=== PATIENT | female | born 1985 | race Caucasian/White ===

== ENCOUNTER 2016-05-31 09:15 | Outpatient (RCR) | payer MEDICAID, OTHER | END 2016-06-05 | LOC: M PT 09:15 | PROVIDERS: ATTEND Psychiatry & Neurology Neurology | DX: Z51.89 Encounter for other specified aftercare (principal); M47.892 Other spondylosis, cervical region; M50.222 Other cervical disc displacement at C5-C6 level ==

== ENCOUNTER 2016-07-05 07:35 | Outpatient (RCR) | payer OTHER | END 2016-07-06 | LOC: M PT 07:35 | PROVIDERS: ATTEND Psychiatry & Neurology Neurology | DX: Z51.89 Encounter for other specified aftercare (principal); M50.222 Other cervical disc displacement at C5-C6 level ==

== ENCOUNTER 2016-07-20 07:41 | Outpatient (RCR) | payer OTHER | END 2016-08-05 | LOC: M PT 07:41 | PROVIDERS: ATTEND Psychiatry & Neurology Neurology | DX: Z51.89 Encounter for other specified aftercare (principal); M50.222 Other cervical disc displacement at C5-C6 level ==

== ENCOUNTER 2016-10-28 20:10 | Inpatient (IN) | payer OTHER ==
[~2016-10-28] VITALS: Ht 157.5 cm; Wt 65.5 kg
[2016-10-28] MEDS ORDERED: SERT-138 PO (20:27)
[2016-10-28] MEDS ORDERED: BUSP30TA PO (20:27)
[2016-10-28] MEDS ORDERED: MIRT45TA PO (20:27)
[2016-10-28] MEDS ORDERED: GABA600T PO (20:27)
[2016-10-28 20:48] LABS: BASO % 0.3 % (0.0-1.0); EOS # 0.2 K/mm3 (0.0-0.50); EOS % 1.5 % (0.0-3.0); LARGE UNSTAINED CELL # 0.1 K/mm3 (0.0-0.4); LARGE UNSTAINED CELL % 1.2 % (0.0-4.0); LYMPH # 1.8 K/mm3 (1.5-4.5); LYMPH % 15.8 % (24.0-44.0); MEAN CORPUSCULAR HEMOGLOBIN 27.2 pg (27.0-33.0); MEAN CORPUSCULAR VOLUME 77.9 fl (80.0-96.0); MONO # 0.4 K/mm3 (0.0-0.8); MONO % 3.6 % (0.0-5.0); NEUTROPHILS # 8.8 K/mm3 (1.8-7.7); NEUTROPHILS % 77.6 % (36.0-66.0); PLATELET COUNT, AUTOMATED 328 k/mm3 (150-450); RED CELL DISTRIBUTION WIDTH 12.7 % (11.5-14.5); WHITE BLOOD COUNT 11.4 K/mm3 (4.0-10.0)
[2016-10-28 21:19] LABS: METHADONE URINE NEGATIVE (NEGATIVE)
[2016-10-28 21:24] LABS: CONTROL LINE HCG INT CTR LINE PRESENT
[2016-10-28 21:39] LABS: ALBUMIN 4.1 GM/DL (3.2-5.2); ALBUMIN/GLOBULIN RATIO 1.28 (1.00-1.93); ALKALINE PHOSPHATASE 64 U/L (45-117); ALT/SGPT 27 U/L (12-78); ANION GAP 4 MEQ/L (8-16); AST/SGOT 17 U/L (15-37); BILIRUBIN,DIRECT < 0.1 MG/DL (0.0-0.2); BILIRUBIN,TOTAL 0.3 MG/DL (0.2-1.0); BLOOD UREA NITROGEN 9 MG/DL (7-18); CALCIUM LEVEL 8.7 MG/DL (8.5-10.1); CARBON DIOXIDE LEVEL 28 MEQ/L (21-32); CHLORIDE LEVEL 111 MEQ/L (98-107); CREATININE FOR GFR 0.69 MG/DL (0.55-1.02); GLOMERULAR FILTRATION RATE > 60.0 (>60); GLUCOSE, FASTING 92 MG/DL (70-105); POTASSIUM SERUM 3.9 MEQ/L (3.5-5.1); SODIUM LEVEL 143 MEQ/L (136-145); TOTAL PROTEIN 7.3 GM/DL (6.4-8.2)
[2016-10-29] MEDS ORDERED: HALOPERIDOL 5 MG/ML VIAL (J1630) IM ONE ×2 (05:15→05:30)
[2016-10-29] MEDS ORDERED: LORazepam 2 MG/ML VIAL (J2060) IM ONE ×2 (05:15→05:30)
[2016-10-29] MEDS ORDERED: diphenhydrAMINE INJ 50MG/ML VIAL (J1200) IM ONE (05:15)
[2016-10-29] MEDS ORDERED: traZODone 50 MG TAB PO PRN (06:00)
[2016-10-29] MEDS ORDERED: ACETAMINOPHEN TAB 650MG DOSE (2X325MG) PO PRN (06:00)
[2016-10-29] MEDS ORDERED: MOM 30ML SUSPENSION UDC PO PRN (06:00)
[2016-10-29] MEDS ORDERED: MAALOX 30 ML SUSP *UDC PO PRN (06:00)
[2016-10-29] MEDS ORDERED: ADDE20CA3 PO (06:06)
[2016-10-29] MEDS ORDERED: SERT50TA PO (06:09)
[2016-10-29] MEDS: NICOTINE 21MG/24HR 1 EA TRANSDERMAL TD SCH (09:00)
[2016-10-29 13:27] VITALS: BP 112/64
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
[2016-10-29 18:31] VITALS: BP 99/56
--- NOTE | 2016-10-30 05:51 | ECGEPIP ---
Stationary ECG Study [facility] - ED Test Date: 2016-10-28 Pat Name: VALENTINA LUNA Department: Room: [place] [address] Gender: F Forester Aide: alayna : 1985 Requested By: HAI Castellanos Order Number: [id number] Reading MD: Caden Abebe Measurements Intervals [place] Rate: 79 P: 73 NC: 153 QRS: 27 QRSD: 94 T: 37 QT: 381 QTc: 439 Interpretive Statements SINUS RHYTHM NO PRIORS Electronically Signed On 10-30-2016 5:51:02 EDT by Caden Abebe
[2016-10-30 06:24] VITALS: BP 136/58
[2016-10-30] MEDS: NICOTINE 21MG/24HR 1 EA TRANSDERMAL TD SCH (09:00)
[2016-10-30] MEDS: GABAPENTIN 300 MG CAP PO SCH ×3 (11:20→22:10)
--- NOTE | 2016-10-30 14:32 | HPE ---
DATE OF ADMISSION: 10/29/2016 HISTORY OF PRESENT ILLNESS: Please refer to psychiatric history and evaluation for further details on this admission. This examination and history is intended for medical issues, which may need treatment, followup or consultation on this 30-year-old male. ALLERGIES: NICKEL. No known drug allergies. PRIMARY CARE PROVIDER: She goes to [facility]. She is not sure of who she exactly sees. SOCIAL HISTORY: . EtOH none. Smokes one pack of cigarettes per day. Recreational drug use is marijuana. PAST MEDICAL HISTORY: Anxiety, depression, low back pain, iron deficiency anemia. PAST SURGICAL HISTORY: Tubal ligation. [place] teeth extraction. Colposcopy. HOME MEDICATIONS: - buspirone 30 mg by mouth twice a day - gabapentin 600 mg by mouth three times a day - mirtazapine 45 mg by mouth at night - sertraline 150 mg by mouth daily - Adderall XR 20 mg by mouth daily - multivitamin with iron one by mouth daily EKG showed sinus rhythm of 79. LABORATORY STUDIES: WBC 11.4, hemoglobin 12.1, hematocrit 34.7, MCV 77.9. Sodium 143, potassium 3.9, chloride 111, CO2 of 28, BUN 9, creatinine 0.69, TSH 0.644. Urine was positive for cannabinoids. REVIEW OF SYSTEMS: Essentially unremarkable other than chronic low back pain, for which she takes gabapentin. She had no other complaints. PHYSICAL EXAMINATION: GENERAL: 30-year-old cooperative female in no acute distress. Height 62 inches, weight 65.5 kg, Body Mass Index (BMI) 26.4. Blood pressure 112/64, pulse 64, respirations 16, temperature 97.5. Patient is alert and oriented times three. HEENT: Pupils are equal and reactive to light. Extraocular muscles intact. Sclerae clear. Conjunctivae normal. No facial asymmetry. Pharynx, gums and tongue pink and moist. Tongue is midline. NECK: Supple without lymphadenopathy, thyromegaly or goiter. Carotids 2+ without bruit. CHEST: Clear to auscultation without wheeze or retraction. HEART: Regular. ABDOMEN: Benign. Bowel sounds positive. GENITOURINARY/RECTAL: Not done. EXTREMITIES: Equal strength, full range of motion. No clubbing, cyanosis, and edema. Peripheral pulses equal and palpable bilaterally. SKIN: Warm and dry. IMPRESSION/PLAN: 1. Psychiatric plan per psychiatry. 2. Low back pain, continue gabapentin 600 mg by mouth three times a day. 3. Iron deficiency anemia. Continue multivitamin with iron. In the morning, we will recheck CBC, serum iron, iron binding capacity and ferritin.
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
[2016-10-30 18:49] VITALS: BP 121/70
[2016-10-31 06:34] VITALS: BP 112/61
[2016-10-31 07:11] LABS: BASO % 0.5 % (0.0-1.0); EOS # 0.2 K/mm3 (0.0-0.50); LARGE UNSTAINED CELL # 0.1 K/mm3 (0.0-0.4); LARGE UNSTAINED CELL % 1.7 % (0.0-4.0); LYMPH # 1.9 K/mm3 (1.5-4.5); LYMPH % 22.8 % (24.0-44.0); MEAN CORPUSCULAR HEMOGLOBIN 27.4 pg (27.0-33.0); MEAN CORPUSCULAR HGB CONC 35.2 g/dl (32.0-36.5); MEAN CORPUSCULAR VOLUME 77.7 fl (80.0-96.0); MONO # 0.4 K/mm3 (0.0-0.8); MONO % 4.9 % (0.0-5.0); NEUTROPHILS # 5.8 K/mm3 (1.8-7.7); NEUTROPHILS % 68.1 % (36.0-66.0); PLATELET COUNT, AUTOMATED 354 k/mm3 (150-450); RED CELL DISTRIBUTION WIDTH 12.4 % (11.5-14.5); WHITE BLOOD COUNT 8.5 K/mm3 (4.0-10.0)
[2016-10-31 07:37] LABS: PERCENT SATURATION 21.2 % (13.2-45.0)
[2016-10-31] MEDS: GABAPENTIN 300 MG CAP PO SCH ×3 (07:52→20:27)
[2016-10-31] MEDS: NICOTINE 21MG/24HR 1 EA TRANSDERMAL TD SCH (07:52)
[2016-10-31] MEDS: busPIRone 10 MG TAB PO SCH ×2 (10:19→20:27)
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
[2016-10-31] MEDS: hydrOXYzine 25 MG TAB PO PRN (16:11)
[2016-10-31 18:00] VITALS: BP 136/65
[2016-10-31] MEDS: MIRTAZAPINE 15 MG TAB PO SCH (20:27)
[2016-10-31] MEDS: SERTRALINE HCL 50 MG TAB PO SCH (20:27)
[2016-11-01 06:28] VITALS: BP 120/59
[2016-11-01] MEDS: NICOTINE 21MG/24HR 1 EA TRANSDERMAL TD SCH (08:16)
[2016-11-01] MEDS: GABAPENTIN 300 MG CAP PO SCH ×3 (08:16→20:15)
[2016-11-01] MEDS: busPIRone 10 MG TAB PO SCH ×2 (08:16→20:14)
[2016-11-01] MEDS: hydrOXYzine 25 MG TAB PO PRN (15:27)
[2016-11-01 18:00] VITALS: BP 106/58
[2016-11-01] MEDS: MIRTAZAPINE 15 MG TAB PO SCH (20:14)
[2016-11-01] MEDS: SERTRALINE HCL 50 MG TAB PO SCH (20:15)
[2016-11-02 07:14] VITALS: BP 113/62
[2016-11-02] MEDS: GABAPENTIN 300 MG CAP PO SCH (08:05)
[2016-11-02] MEDS: busPIRone 10 MG TAB PO SCH (08:05)
[2016-11-02] MEDS: NICOTINE 21MG/24HR 1 EA TRANSDERMAL TD SCH (08:05)
[2016-11-02] MEDS: hydrOXYzine 25 MG TAB PO PRN (08:05)
[2016-11-02] MEDS ORDERED: Sertraline Hcl PO (09:13)
[2016-11-02] MEDS ORDERED: HYDR-3363 PO (09:13)
[2016-11-02] MEDS ORDERED: SERT-138 PO (09:16)
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
[2016-11-02] MEDS ORDERED: SERTRALINE 100 MG TAB PO SCH (21:00)
== END 2016-11-02 10:34 | disposition home or self-care (01) | DRG 753 ==
LOC: M ED 20:10 → M ED INP 10-29 05:46 → M PSY 10-29 13:15
PROVIDERS: ADMIT Psychiatry & Neurology Child & Adolescent Psychiatry; ATTEND Psychiatry & Neurology Child & Adolescent Psychiatry
DX: F32.81 Premenstrual dysphoric disorder (principal); F32.2 Major depressive disorder, single episode, severe without psychotic features; F90.9 Attention-deficit hyperactivity disorder, unspecified type; Z79.899 Other long term (current) drug therapy; M54.5 Low back pain; D50.9 Iron deficiency anemia, unspecified

== ENCOUNTER → 2016-11-11 | Outpatient (REF) | payer OTHER ==
[~2016-11-11] MED LIST: ADDE20CA3 PO; BUSP30TA PO; GABA600T PO; HYDR-3363 PO; MIRT45TA PO; SERT-138 PO; SERT50TA PO; Sertraline Hcl PO
[2016-11-11 13:44] LABS: BASO # 0.1 10^3/uL (0.0-0.2); BASO % 0.7 % (0.0-1.0); EOS # 0.7 10^3/uL (0.0-0.50); IMMATURE GRANULOCYTE % 0.9 % (0-0); LYMPH # 3.1 10^3/uL (1.5-4.5); LYMPH % 23.2 % (24.0-44.0); MEAN CORPUSCULAR HEMOGLOBIN 25.9 pg (27.0-33.0); MEAN CORPUSCULAR HGB CONC 32.6 g/dl (32.0-36.5); MEAN CORPUSCULAR VOLUME 79.5 fl (80.0-96.0); MONO # 0.8 10^3/uL (0.0-0.8); MONO % 6.2 % (0.0-5.0); NEUTROPHILS # 8.5 10^3/uL (1.8-7.7); PLATELET COUNT, AUTOMATED 356 10^3/uL (150-450); RED CELL DISTRIBUTION WIDTH 13.6 % (11.5-14.5); WHITE BLOOD COUNT 13.3 10^3/uL (4.0-10.0)
[2016-11-11 14:07] LABS: ALBUMIN 3.7 GM/DL (3.2-5.2); ALBUMIN/GLOBULIN RATIO 1.16 (1.00-1.93); ALKALINE PHOSPHATASE 65 U/L (45-117); ALT/SGPT 43 U/L (12-78); ANION GAP 7 MEQ/L (8-16); AST/SGOT 20 U/L (15-37); BILIRUBIN,TOTAL 0.2 MG/DL (0.2-1.0); BLOOD UREA NITROGEN 15 MG/DL (7-18); CALCIUM LEVEL 8.5 MG/DL (8.5-10.1); CARBON DIOXIDE LEVEL 27 MEQ/L (21-32); CHLORIDE LEVEL 104 MEQ/L (98-107); CREATININE FOR GFR 0.68 MG/DL (0.55-1.02); GLOMERULAR FILTRATION RATE > 60.0 (>60); GLUCOSE, FASTING 83 MG/DL (70-105); POTASSIUM SERUM 4.2 MEQ/L (3.5-5.1); SODIUM LEVEL 138 MEQ/L (136-145); TOTAL PROTEIN 6.9 GM/DL (6.4-8.2)
== END ==
LOC: M LABNEURO 11:36
PROVIDERS: ATTEND Obstetrics & Gynecology
DX: R07.1 Chest pain on breathing (principal)

== ENCOUNTER → 2017-03-22 | Outpatient (REF) | payer OTHER | LOC: M SFHCPLAZ 11:12 | DX: F31.9 Bipolar disorder, unspecified (principal); Z53.9 Procedure and treatment not carried out, unspecified reason ==

== ENCOUNTER → 2018-02-12 | Outpatient (REF) | payer OTHER ==
[~2018-02-12] MED LIST changes: -GABA600T PO; +GABA600T4 PO; -MIRT45TA PO; +MIRT45TA4 PO
[2018-02-12 16:16] LABS: PROLACTIN 5.3 NG/ML
[2018-02-12 16:27] LABS: HCG, SERUM QUALITATIVE NEGATIVE (NEGATIVE)
[2018-02-12 16:45] LABS: RUBELLA IgG QUALITATIVE IMMUNE (IMMUNE)
[2018-02-14 08:06] LABS: MUMPS VIRUS IgG ANTIBODY <9.0 AU/mL (Immune >10.9); RUBEOLA IgG ANTIBODY >300.0 AU/mL (Immune >29.9)
== END ==
LOC: M SFHCPLAZ 13:12
PROVIDERS: ATTEND Student in an Organized Health Care Education/Training Program
DX: E22.9 Hyperfunction of pituitary gland, unspecified (principal); Z92.29 Personal history of other drug therapy

== ENCOUNTER → 2018-06-29 | Outpatient (REF) | payer OTHER ==
[~2018-06-29] MED LIST changes: +SERT-141 PO; -SERT50TA PO
[2018-06-29 13:59] LABS: CHLAMYDIA DNA AMPLIFICATION NEGATIVE (NEGATIVE); GC DNA AMPLIFICATION NEGATIVE (NEGATIVE)
== END ==
LOC: M SFHCPLAZ 08:38
PROVIDERS: ATTEND Family Medicine
DX: Z12.4 Encounter for screening for malignant neoplasm of cervix (principal); Z11.9 Encounter for screening for infectious and parasitic diseases, unspecified

== ENCOUNTER → 2018-09-12 | Outpatient (REF) | payer OTHER ==
[2018-09-12 13:49] LABS: BASO # 0.1 10^3/uL (0.0-0.2); BASO % 0.5 % (0.0-1.0); EOS # 0.6 10^3/uL (0.0-0.50); EOS % 4.7 % (0.0-3.0); HEMATOCRIT 38.2 % (36.0-47.0); HEMOGLOBIN 12.2 g/dl (12.0-15.5); LYMPH % 25.7 % (24.0-44.0); MEAN CORPUSCULAR HEMOGLOBIN 24.8 pg (27.0-33.0); MEAN CORPUSCULAR HGB CONC 31.9 g/dl (32.0-36.5); MEAN CORPUSCULAR VOLUME 77.8 fl (80.0-96.0); MONO # 0.8 10^3/uL (0.0-0.8); NEUTROPHILS # 7.2 10^3/uL (1.8-7.7); NEUTROPHILS % 61.8 % (36.0-66.0); PLATELET COUNT, AUTOMATED 465 10^3/uL (150-450); RED BLOOD COUNT 4.91 10^6/uL (4.00-5.40); WHITE BLOOD COUNT 11.7 10^3/uL (4.0-10.0)
[2018-09-12 13:52] LABS: CHOLESTEROL RISK RATIO 5.096 (<5)
[2018-09-12 14:17] LABS: HEMOGLOBIN A1c 5.8 %
== END ==
LOC: M LABNEURO 08:30
PROVIDERS: ATTEND Student in an Organized Health Care Education/Training Program
DX: F31.9 Bipolar disorder, unspecified (principal); Z13.6 Encounter for screening for cardiovascular disorders

== ENCOUNTER → 2019-02-07 | Outpatient (REF) | payer OTHER ==
[2019-02-07 12:26] LABS: HEMOGLOBIN A1c 5.3 %
== END ==
LOC: M LABDRAW1 11:36
PROVIDERS: ATTEND Family Medicine
DX: R73.03 Prediabetes (principal)

== ENCOUNTER → 2019-03-18 | Outpatient (REF) | payer OTHER ==
[2019-03-18 16:03] LABS: CHOLESTEROL RISK RATIO 5.261 (<5)
[2019-03-18 17:59] LABS: HEMOGLOBIN A1c 5.4 %
== END ==
LOC: M SFHCPLAZ 13:43
PROVIDERS: ATTEND Family Medicine
DX: Z13.1 Encounter for screening for diabetes mellitus (principal); Z13.220 Encounter for screening for lipoid disorders

== ENCOUNTER → 2019-06-06 | Outpatient (REF) | payer OTHER | LOC: M SFHCPLAZ 17:07 | PROVIDERS: ATTEND Student in an Organized Health Care Education/Training Program | DX: F11.10 Opioid abuse, uncomplicated (principal) ==

== ENCOUNTER 2019-11-01 15:50 | Emergency (ER) | payer OTHER ==
[~2019-11-01] VITALS: Ht 157.5 cm; Wt 98.3 kg
[2019-11-01] MEDS ORDERED: AUGMENTIN 875 MG TAB PO ONE (16:30)
[2019-11-01] MEDS ORDERED: LIDOCAINE 1% MDV 20ML VIAL SC ONE (16:30)
[2019-11-01] MEDS ORDERED: NORCO, ANEXSIA 5/325MG TABLET (HYDROcodone/ACETAMINOPHEN) PO ONE (16:45)
[2019-11-01] MEDS ORDERED: NALT50TA4 (16:54)
[2019-11-01] MEDS ORDERED: AUGM875T28 PO (17:25)
[2019-11-01 17:30] VITALS: BP 106/59
== END 2019-11-01 17:43 | disposition home or self-care (01) ==
LOC: M ED 15:50
DX: S51.851A Open bite of right forearm, initial encounter (principal); S01.85XA Open bite of other part of head, initial encounter; W54.0XXA Bitten by dog, initial encounter; Y92.9 Unspecified place or not applicable; Y93.9 Activity, unspecified; Y99.9 Unspecified external cause status; Z79.899 Other long term (current) drug therapy

== ENCOUNTER → 2019-12-04 | Outpatient (REF) | payer OTHER ==
[~2019-12-04] MED LIST changes: +AUGM875T28 PO; +NALT50TA4
[2019-12-04 10:46] LABS: HEMATOCRIT 38.3 % (36.0-47.0); HEMOGLOBIN 11.6 g/dl (12.0-15.5); MEAN CORPUSCULAR HEMOGLOBIN 22.3 pg (27.0-33.0); MEAN CORPUSCULAR HGB CONC 30.3 g/dl (32.0-36.5); MEAN CORPUSCULAR VOLUME 73.5 fl (80.0-96.0); PLATELET COUNT, AUTOMATED 441 10^3/uL (150-450); RED BLOOD COUNT 5.21 10^6/uL (4.00-5.40); WHITE BLOOD COUNT 11.6 10^3/uL (4.0-10.0)
[2019-12-04 11:15] LABS: ALBUMIN 3.5 GM/DL (3.2-5.2); ALT/SGPT 37 U/L (12-78); BILIRUBIN,TOTAL 0.1 MG/DL (0.2-1.0); BLOOD UREA NITROGEN 9 MG/DL (7-18); CALCIUM LEVEL 8.8 MG/DL (8.5-10.1); CARBON DIOXIDE LEVEL 25 MEQ/L (21-32); CHLORIDE LEVEL 109 MEQ/L (98-107); CHOLESTEROL LEVEL 206 MG/DL (<200); CHOLESTEROL RISK RATIO 4.904 (<5); CREATININE FOR GFR 0.91 MG/DL (0.55-1.30); GLOMERULAR FILTRATION RATE > 60.0 (>60); GLUCOSE, FASTING 102 MG/DL (70-100); HDL CHOLESTEROL 42 MG/DL (>40); LDL CHOLESTEROL 142 MG/DL (<100); NON-HDL-C 164 MG/DL; POTASSIUM SERUM 4.4 MEQ/L (3.5-5.1); SODIUM LEVEL 138 MEQ/L (136-145); THYROID STIMULATING HORMONE 0.665 uIU/ML (0.358-3.740); TOTAL PROTEIN 7.2 GM/DL (6.4-8.2); TRIGLYCERIDES LEVEL 109 MG/DL (<150)
[2019-12-04 14:02] LABS: HEMOGLOBIN A1c 5.5 %
== END ==
LOC: M SFHCPLAZ 08:29
DX: F98.8 Other specified behavioral and emotional disorders with onset usually occurring in childhood and adolescence (principal); E66.9 Obesity, unspecified; E78.2 Mixed hyperlipidemia; D50.9 Iron deficiency anemia, unspecified

== ENCOUNTER → 2019-12-06 | Outpatient (REF) | payer OTHER ==
[2019-12-06 14:30] LABS: PERCENT SATURATION 5.5 % (13.2-45.0)
== END ==
LOC: M SFHCPLAZ 11:22
PROVIDERS: ATTEND Family Medicine
DX: D50.9 Iron deficiency anemia, unspecified (principal)

== ENCOUNTER → 2020-06-09 | Outpatient (REF) | payer OTHER ==
[2020-06-09 17:29] LABS: BASO # 0.1 10^3/uL (0.0-0.2); BASO % 0.6 % (0.0-1.0); EOS # 0.3 10^3/uL (0.0-0.5); EOS % 2.3 % (0.0-3.0); HEMATOCRIT 39.1 % (36.0-47.0); LYMPH # 3.5 10^3/uL (1.5-5.0); LYMPH % 27.7 % (24.0-44.0); MEAN CORPUSCULAR HEMOGLOBIN 22.9 pg (27.0-33.0); MEAN CORPUSCULAR HGB CONC 30.7 g/dl (32.0-36.5); MEAN CORPUSCULAR VOLUME 74.8 fl (80.0-96.0); MONO # 0.8 10^3/uL (0.0-0.8); NEUTROPHILS % 62.6 % (36.0-66.0); PLATELET COUNT, AUTOMATED 483 10^3/uL (150-450); RED BLOOD COUNT 5.23 10^6/uL (4.00-5.40); WHITE BLOOD COUNT 12.8 10^3/uL (4.0-10.0)
== END ==
LOC: M SFHCPLAZ 14:45
PROVIDERS: ATTEND Family Medicine
DX: D50.9 Iron deficiency anemia, unspecified (principal)

== ENCOUNTER → 2020-10-21 | Outpatient (CLI) | payer OTHER ==
[2020-10-21 13:32] LABS: HEMATOCRIT 37.8 % (36.0-47.0); HEMOGLOBIN 11.7 g/dl (12.0-15.5); MEAN CORPUSCULAR VOLUME 77.6 fl (80.0-96.0); PLATELET COUNT, AUTOMATED 349 10^3/uL (150-450); RED BLOOD COUNT 4.87 10^6/uL (4.00-5.40); WHITE BLOOD COUNT 14.2 10^3/uL (4.0-10.0)
[2020-10-21 14:18] LABS: FOLATE 7.2 NG/ML; PERCENT SATURATION 6.4 % (13.2-45.0)
== END ==
LOC: M PLALAB 10:23
PROVIDERS: ATTEND Student in an Organized Health Care Education/Training Program
DX: D50.9 Iron deficiency anemia, unspecified (principal)

== ENCOUNTER → 2020-10-21 | Outpatient (REF) | payer OTHER | LOC: M SFHCPLAZ 10:14 | PROVIDERS: ATTEND Family Medicine | DX: D50.9 Iron deficiency anemia, unspecified (principal) ==

== ENCOUNTER → 2020-11-04 | Outpatient (CLI) | payer OTHER ==
[2020-11-04 11:01] LABS: HEMATOCRIT 37.9 % (36.0-47.0); HEMOGLOBIN 11.7 g/dl (12.0-15.5); MEAN CORPUSCULAR HEMOGLOBIN 23.9 pg (27.0-33.0); MEAN CORPUSCULAR HGB CONC 30.9 g/dl (32.0-36.5); MEAN CORPUSCULAR VOLUME 77.5 fl (80.0-96.0); PLATELET COUNT, AUTOMATED 424 10^3/uL (150-450); RED BLOOD COUNT 4.89 10^6/uL (4.00-5.40); WHITE BLOOD COUNT 10.7 10^3/uL (4.0-10.0)
[2020-11-04 11:29] LABS: ALBUMIN 3.4 GM/DL (3.2-5.2); ALT/SGPT 51 U/L (12-78); BILIRUBIN,TOTAL 0.3 MG/DL (0.2-1.0); BLOOD UREA NITROGEN 13 MG/DL (7-18); CARBON DIOXIDE LEVEL 27 MEQ/L (21-32); CHLORIDE LEVEL 105 MEQ/L (98-107); CREATININE FOR GFR 0.87 MG/DL (0.55-1.30); GLOMERULAR FILTRATION RATE > 60.0 (>60); GLUCOSE, FASTING 97 MG/DL (70-100); POTASSIUM SERUM 4.2 MEQ/L (3.5-5.1); SODIUM LEVEL 139 MEQ/L (136-145); TOTAL PROTEIN 6.8 GM/DL (6.4-8.2)
[2020-11-04 11:38] LABS: HCG, SERUM QUALITATIVE NEGATIVE (NEGATIVE)
[2020-11-04 11:50] LABS: HEPATITIS B SURFACE ANTIGEN NEGATIVE (NEGATIVE)
[2020-11-04 12:19] LABS: HIV 1&2 SCREEN CENTAUR NEGATIVE (NEGATIVE)
== END ==
LOC: M PLALAB 09:20
PROVIDERS: ATTEND Family Medicine
DX: F11.20 Opioid dependence, uncomplicated (principal)

== ENCOUNTER → 2021-05-11 | Outpatient (CLI) | payer OTHER ==
[2021-05-11 13:24] LABS: HEMATOCRIT 41.3 % (36.0-47.0); HEMOGLOBIN 13.2 g/dl (12.0-15.5); MEAN CORPUSCULAR VOLUME 78.4 fl (80.0-96.0); PLATELET COUNT, AUTOMATED 360 10^3/uL (150-450); RED BLOOD COUNT 5.27 10^6/uL (4.00-5.40); WHITE BLOOD COUNT 8.9 10^3/uL (4.0-10.0)
[2021-05-11 13:59] LABS: FREE T4 0.79 NG/DL (0.76-1.46); PERCENT SATURATION 6.8 % (13.2-45.0); THYROID STIMULATING HORMONE 1.33 uIU/ML (0.358-3.740)
== END ==
LOC: M PLALAB 12:05
PROVIDERS: ATTEND Family Medicine
DX: D50.9 Iron deficiency anemia, unspecified (principal); R53.82 Chronic fatigue, unspecified

== ENCOUNTER → 2021-10-15 | Outpatient (CLI) | payer OTHER ==
[2021-10-15 14:50] LABS: HEMATOCRIT 44.6 % (36.0-47.0); HEMOGLOBIN 13.8 g/dl (12.0-15.5); MEAN CORPUSCULAR HGB CONC 30.9 g/dl (32.0-36.5); MEAN CORPUSCULAR VOLUME 80.8 fl (80.0-96.0); PLATELET COUNT, AUTOMATED 327 10^3/uL (150-450); RED BLOOD COUNT 5.52 10^6/uL (4.00-5.40); WHITE BLOOD COUNT 12.1 10^3/uL (4.0-10.0)
[2021-10-15 15:31] LABS: HCG, SERUM QUALITATIVE NEGATIVE (NEGATIVE)
[2021-10-15 15:38] LABS: ALBUMIN 3.9 GM/DL (3.2-5.2); ALT/SGPT 111 U/L (12-78); BILIRUBIN,TOTAL 0.3 MG/DL (0.2-1.0); BLOOD UREA NITROGEN 18 MG/DL (7-18); CALCIUM LEVEL 9.5 MG/DL (8.5-10.1); CARBON DIOXIDE LEVEL 27 MEQ/L (21-32); CHLORIDE LEVEL 103 MEQ/L (98-107); CREATININE FOR GFR 0.76 MG/DL (0.55-1.30); GLOMERULAR FILTRATION RATE > 60.0 (>60); GLUCOSE, FASTING 93 MG/DL (70-100); POTASSIUM SERUM 4.7 MEQ/L (3.5-5.1); SODIUM LEVEL 135 MEQ/L (136-145); TOTAL PROTEIN 7.6 GM/DL (6.4-8.2)
[2021-10-15 16:30] LABS: HEPATITIS B SURFACE ANTIGEN NEGATIVE (NEGATIVE)
[2021-10-15 16:34] LABS: GC DNA AMPLIFICATION NEGATIVE (NEGATIVE)
[2021-10-15 16:58] LABS: HEPATITIS C VIRUS ABY INDEX < 0.0 INDEX (<0.8)
[2021-10-15 16:59] LABS: HIV 1&2 SCREEN CENTAUR NEGATIVE (NEGATIVE)
== END ==
LOC: M PLALAB 11:01
PROVIDERS: ATTEND Family Medicine
DX: F11.20 Opioid dependence, uncomplicated (principal)

== ENCOUNTER → 2022-06-10 | Outpatient (REF) | payer OTHER | LOC: M SFHCPLAZ 13:42 | PROVIDERS: ATTEND Family Medicine | DX: J02.0 Streptococcal pharyngitis (principal) ==

== ENCOUNTER → 2022-07-05 | Outpatient (REF) | payer OTHER | LOC: M SFHCPLAZ 14:26 | PROVIDERS: ATTEND Student in an Organized Health Care Education/Training Program | DX: Z53.9 Procedure and treatment not carried out, unspecified reason (principal); M25.561 Pain in right knee ==

== ENCOUNTER → 2022-12-16 | Outpatient (CLI) | payer OTHER ==
[2022-12-16 14:19] LABS: BASO # 0.1 10^3/uL (0.0-0.2); BASO % 0.7 % (0.0-1.0); EOS # 0.4 10^3/uL (0.0-0.5); EOS % 2.8 % (0.0-3.0); HEMATOCRIT 41.1 % (36.0-47.0); HEMOGLOBIN 13.3 g/dl (12.0-15.5); LYMPH # 3.3 10^3/uL (1.5-5.0); LYMPH % 24.3 % (24.0-44.0); MEAN CORPUSCULAR HEMOGLOBIN 26.3 pg (27.0-33.0); MEAN CORPUSCULAR HGB CONC 32.4 g/dl (32.0-36.5); MEAN CORPUSCULAR VOLUME 81.4 fl (80.0-96.0); MONO # 1.1 10^3/uL (0.0-0.8); MONO % 8.2 % (2.0-8.0); NEUTROPHILS # 8.5 10^3/uL (1.5-8.5); NEUTROPHILS % 63.5 % (36.0-66.0); PLATELET COUNT, AUTOMATED 356 10^3/uL (150-450); RED BLOOD COUNT 5.05 10^6/uL (4.00-5.40); WHITE BLOOD COUNT 13.4 10^3/uL (4.0-10.0)
[2022-12-16 14:33] LABS: ALBUMIN 3.7 G/DL (3.2-5.2); ALKALINE PHOSPHATASE 106 U/L (46-116); ALT/SGPT 105 U/L (7.0-40); AST/SGOT 34 U/L (<34); BILIRUBIN,TOTAL 0.4 MG/DL (0.3-1.2); BLOOD UREA NITROGEN 10 MG/DL (9-23); CALCIUM LEVEL 9.1 MG/DL (8.5-10.1); CARBON DIOXIDE LEVEL 27 MMOL/L (20-31); CHLORIDE LEVEL 106 MMOL/L (98-107); CHOLESTEROL LEVEL 226 MG/DL (<200); CHOLESTEROL RISK RATIO 3.74 (<5); CREATININE FOR GFR 0.72 MG/DL (0.55-1.30); GLOMERULAR FILTRATION RATE > 60.0 (>60); GLUCOSE, FASTING 89 MG/DL (60-100); HDL CHOLESTEROL 60.3 MG/DL (>40); LDL CHOLESTEROL 150.7 MG/DL (<100); NON-HDL-C 165.7 MG/DL; POTASSIUM SERUM 4.6 MMOL/L (3.5-5.1); SODIUM LEVEL 138 MMOL/L (136-145); TRIGLYCERIDES LEVEL 75 MG/DL (<150)
[2022-12-16 14:34] LABS: PROLACTIN 6.04 NG/ML; THYROID STIMULATING HORMONE 1.494 uIU/ML (0.55-4.78)
== END ==
LOC: M PLALAB 09:15
PROVIDERS: ATTEND Student in an Organized Health Care Education/Training Program
DX: F31.9 Bipolar disorder, unspecified (principal)

== ENCOUNTER → 2023-07-11 | Outpatient (CLI) | payer OTHER ==
[2023-07-11 13:37] LABS: BASO % 0.4 % (0.0-1.0); EOS # 0.2 10^3/uL (0.0-0.5); EOS % 2.1 % (0.0-3.0); HEMATOCRIT 42.3 % (36.0-47.0); HEMOGLOBIN 13.6 g/dl (12.0-15.5); LYMPH # 3.5 10^3/uL (1.5-5.0); LYMPH % 31.1 % (24.0-44.0); MEAN CORPUSCULAR HGB CONC 32.2 g/dl (32.0-36.5); MEAN CORPUSCULAR VOLUME 80.7 fl (80.0-96.0); MONO # 0.9 10^3/uL (0.0-0.8); MONO % 7.9 % (2.0-8.0); NEUTROPHILS # 6.5 10^3/uL (1.5-8.5); NEUTROPHILS % 58.1 % (36.0-66.0); PLATELET COUNT, AUTOMATED 317 10^3/uL (150-450); RED BLOOD COUNT 5.24 10^6/uL (4.00-5.40); WHITE BLOOD COUNT 11.1 10^3/uL (4.0-10.0)
[2023-07-11 13:38] LABS: ALBUMIN 3.8 G/DL (3.2-5.2); ALKALINE PHOSPHATASE 74 U/L (46-116); ALT/SGPT 48 U/L (7.0-40); AST/SGOT 18 U/L (<34); BILIRUBIN,TOTAL 0.7 MG/DL (0.3-1.2); BLOOD UREA NITROGEN 10 MG/DL (9-23); CALCIUM LEVEL 9.6 MG/DL (8.5-10.1); CARBON DIOXIDE LEVEL 27 MMOL/L (20-31); CHLORIDE LEVEL 108 MMOL/L (98-107); CHOLESTEROL LEVEL 191 MG/DL (<200); CHOLESTEROL RISK RATIO 4.31 (<5); CREATININE FOR GFR 0.73 MG/DL (0.55-1.30); GLOMERULAR FILTRATION RATE > 60.0 (>60); GLUCOSE, FASTING 93 MG/DL (60-100); HDL CHOLESTEROL 44.3 MG/DL (>40); LDL CHOLESTEROL 126.1 MG/DL (<100); NON-HDL-C 146.7 MG/DL; POTASSIUM SERUM 4.9 MMOL/L (3.5-5.1); SODIUM LEVEL 137 MMOL/L (136-145); TOTAL PROTEIN 6.8 G/DL (5.7-8.2); TRIGLYCERIDES LEVEL 103 MG/DL (<150)
[2023-07-11 13:40] LABS: THYROID STIMULATING HORMONE 0.867 uIU/ML (0.55-4.78)
[2023-07-11 14:22] LABS: HEMOGLOBIN A1c 5.2 % (4.0-6.0)
== END ==
LOC: M PLALAB 10:40
PROVIDERS: ATTEND Nurse Practitioner Psychiatric/Mental Health
DX: F90.2 Attention-deficit hyperactivity disorder, combined type (principal); Z79.899 Other long term (current) drug therapy

== ENCOUNTER → 2023-11-22 | Outpatient (CLI) | payer OTHER ==
[~2023-11-22] MED LIST changes: +GABA-1490 PO; -GABA600T4 PO
== END ==
LOC: M WHC 11:47
PROVIDERS: ATTEND Family Medicine
DX: Z00.00 Encounter for general adult medical examination without abnormal findings (principal); Z53.9 Procedure and treatment not carried out, unspecified reason

== ENCOUNTER → 2024-03-11 | Outpatient (REF) | payer OTHER | LOC: M SFHCPLAZ 16:54 | PROVIDERS: ATTEND Student in an Organized Health Care Education/Training Program | DX: Z12.4 Encounter for screening for malignant neoplasm of cervix (principal); R87.615 Unsatisfactory cytologic smear of cervix ==

== ENCOUNTER 2024-06-04 01:03 | Emergency (ER) | payer OTHER ==
[~2024-06-04] VITALS: Ht 157.5 cm; Wt 100.0 kg
[2024-06-04] MEDS: ACETAMINOPHEN *IV* 1,000 MG in IV 1 EA IV ONE (01:51)
[2024-06-04] MEDS: ONDANSETRON 4MG 2ML VIAL IV ONE (02:49)
[2024-06-04] MEDS: MORPHINE 4 MG/ML 1ML VIAL IV PRN (02:49)
[2024-06-04] MEDS: NS (Normal Saline) 0.9% 1,000 ML IV ONE (03:45)
[2024-06-04 03:47] VITALS: O2SAT 97
[2024-06-04] MEDS: KETOROLAC 30 MG/ML 1ML VIAL IV ONE (04:24)
[2024-06-04 05:01] VITALS: TEMP 98.3
[2024-06-04] MEDS ORDERED: KETO-204 PO (05:08)
[2024-06-04] MEDS ORDERED: PERC5TAB12 PO (05:08)
[2024-06-04 05:30] VITALS: BP 120/74; O2SAT 97
== END 2024-06-04 05:30 | disposition home or self-care (01) ==
LOC: EDBD 01:03 → M ED 01:03
DX: S22.080A Wedge compression fracture of T11-T12 vertebra, initial encounter for closed fracture (principal); V49.50XA Passenger injured in collision with unspecified motor vehicles in traffic accident, initial encounter; Y92.9 Unspecified place or not applicable; Y93.9 Activity, unspecified; Y99.9 Unspecified external cause status; F90.9 Attention-deficit hyperactivity disorder, unspecified type; F31.9 Bipolar disorder, unspecified; D50.9 Iron deficiency anemia, unspecified; M54.50 Low back pain, unspecified; Z79.899 Other long term (current) drug therapy
CPT/HCPCS: 70450; 72125; 72128; 72131; 96361; 96365; 96366; 96375; 99285; J0131; J1885; J2405

== ENCOUNTER → 2025-01-22 | Outpatient (REF) | payer OTHER ==
[~2025-01-22] MED LIST changes: +KETO-204 PO; +PERC5TAB12 PO
== END ==
LOC: M SFHCPLAZ 08:34
PROVIDERS: ATTEND Student in an Organized Health Care Education/Training Program
DX: Z53.9 Procedure and treatment not carried out, unspecified reason (principal)